=== PATIENT | female | born 2000 | race Caucasian/White ===

== ENCOUNTER 2025-05-28 08:20 | Emergency (ER) | payer OTHER, SELFPAY ==
--- NOTE | 2025-05-28 08:23 | ED_ITS ---
HPI - Dizziness General Chief Complaint: Dizziness Stated Complaint: lightheaded/dizzy/heavy Time Seen by Provider: 05/28/25 08:23 Source: patient Mode of arrival: ambulatory Limitations: no limitations History of Present Illness HPI Narrative: Bladimir is a 24-year-old female patient presenting to the clinic today with complaints of lightheadedness/dizziness since this morning when she woke up. She reports she is having a slight headache comes and goes, feeling unsteady on her feet, and dizziness is worse with position changes. Feels as though everything is heavy. Heart rate is low-40s and 50s-states that she does not think that is normal for her. Denies any chest pain or shortness of breath. No visual changes. No urinary symptoms. Last menstrual period was last month. Denies chance of . Medical history of GERD. No history of diabetes, heart problems, orthostatic hypotension, or vertigo. Related Data Allergies Allergy/AdvReac Type Severity Reaction Status Date / Time No Known Allergies Allergy Verified 05/28/25 09:24 Review of Systems Review of Systems: Pertinent positives per HPI. Patient denies any fever, chills, rash, visual changes, cough, runny nose, sore throat, shortness of breath, chest pain, palpitations, nausea, vomiting, diarrhea, constipation, abdominal pain, or any urinary issues. PMFSH Comments At the time of my signature, I reviewed and agree with the nursing past medical, surgical, social, and family history. There is no relevant family history pertinent to the patient complaint. Exam Narrative: General: Well-developed, well nourished, in no apparent distress Head: Normocephalic, atraumatic Eyes: Pupils equally round and reactive to light bilaterally, EOM intact, sclera and conjunctive clear, no discharge, lids normal, right-sided nystagmus on exam, dizziness worsens when turning her head to the right Ears: TMs intact and clear, ear canals clear, no drainage, grossly hearing normal. Nose: Nares patent, no discharge, no inflammation, no sinus tenderness. Mouth: Oropharynx without lesions or masses, good dentition, MMM. Tongue midline, even rise and fall of uvula Neck: Supple, trachea midline, no enlargement of anterior or posterior cervical nodes, no thyroid masses or goiter palpable. Cardio: Bradycardic- rate and rhythm, s1 and s2 normal, no murmur appreciated. Resp: Clear to auscultation bilaterally anteriorly and posteriorly, no rhonchi, rales, wheezing or rubs Musculoskeletal: No deformity, non-tender to palpation, grossly normal range of motion, muscle strength strong and equal, peripheral pulse strong, no edema, no cyanosis, normal gait and station Neuro: Alert and oriented x4 with normal speech, no focal deficits, cranial nerves I through XII intact, muscle strength 5 out of 5, sensation intact bilaterally Course Course Emergency Course: Portions of this record may have been created with voice recognition software. Level of Care: Express Care Visit Vital Signs Vital signs: Vital Signs Temperature 36.3 C L 05/28/25 08:42 Pulse Rate 47 L 05/28/25 08:42 Respiratory Rate 18 05/28/25 08:42 Blood Pressure 134/73 05/28/25 08:42 Pulse Oximetry 100 05/28/25 08:42 Oxygen Delivery Room Air 05/28/25 08:42 Temperature 36.3 C L 05/28/25 08:42 Pulse Rate 51 L 05/28/25 09:37 Respiratory Rate 16 05/28/25 09:37 Blood Pressure 121/63 05/28/25 09:37 Pulse Oximetry 100 05/28/25 09:37 Oxygen Delivery Room Air 05/28/25 09:37 Vital signs reviewed Transfer Transfered to: [facility] Transportation: Other (Private car) Transfer rationale: Dizziness, right nystagmus, bradycardia Accepting physician: Malu Transfer comments: private car- father to drive MDM - Dizziness MDM Narrative Medical decision making narrative: At the time of visit patient is resting comfortably on the exam table. Patient appears to be nontoxic. EKG: EKG shows sinus bradycardia with sinus arrhythmia with a heart rate of 50 beats per minute no ST elevation or depression noted. No comparison EKG available Labs: Urinalysis shows trace of leukocytes and 1+ blood. Bedside test was negative. We will send urine for culture. Blood sugar was 88 Orthostatic blood pressures: Lying blood pressure was 125/67 with a heart rate of 49 beats per minute, sitting blood pressure was 120/60 with a heart rate of 50, standing blood pressure was 121/63 with heart rate of 64 Procedures: Attempted May maneuver in the clinic today-for right-sided BPPV- patient did not feel as though this helps Plan: Patient is bradycardic-heart rate 40s and 50s, orthostatic blood pressures were within normal limits, blood sugar is 88, attempted May maneuver without success. Neuro exam negative other than right-sided nystagmus. Offer to send patient to the ER for further evaluation and she spoke with her parents and they all decided that she would like to go to the emergency room for further evaluation. Patient would like to go to [facility]. Contacted Taylor- physician's assistant education director at [facility] report was given for continuity of care. Patient to be driven to the ER via private car by her father. Differential Diagnosis Differential diagnosis: Likely adverse reaction to drug, benign paroxysmal positional vertigo, orthostatic hypotension, vertebral basilar insufficiency, cerebrovascular accident, acute vestibular neuronitis, transient cerebral ischemia and other (Hypoglycemia, cardiac dysrhythmia, UTI, dehydration, anxiety,) Lab Data Labs: Lab Results 05/28/25 05/28/25 Range/Units 09:03 09:08 POC Capillary Glucose 88 (65-105) mg/dl POC Urine Color Yellow POC Urine Clarity Clear POC Urine pH 7.0 POC Ur Specif [place] 1.015 POC Urine Protein Negative (Negative) POC Ur Glucose (UA) Negative (Negative) POC Urine Ketones Negative (Negative) POC Urine Blood 1+ (Negative) POC Urine Nitrite Negative (Negative) POC Urine Bilirubin Negative (Negative) POC Urine Urobilinogen 0.2 POC U Leukocyte Esteras Trace (Negative) POC Urine HCG, Qual Negative (Negative) Discharge Plan Discharge Clinical Impression: Dizziness, Bradycardia, Nystagmus of right eye Patient Disposition: Acute Care Hospital Condition: Stable Patient Language: Sami Follow-up/Referrals: UNKNOWN,DOCTOR [Primary Care Provider] - Time of Disposition: 09:35 Quality NIHSS Nursing Documentation ED NIHSS nursing documentation: reviewed/agree
--- OUTSIDE RECORDS SUMMARY | 2025-05-28 08:31 | XMS_ITS | Clinical Summary ---
Author Organization [facility] Address [address] [place] [address] Care Team Providers Care Flare Maker Name Role Phone Provider, Unknown Primary Care Provider Unavaila ble Allergies No known active allergies Medications Blisovi FE 11/24 1-20 MG-MCG Tablet 2 Active ondansetron (ZOFRAN-ODT) 4 MG TABLET DISPERSIBLEIndic ations:Nausea and vomiting, unspecified vomiting type Take 1 Tablet by mouth every 8 hours as needed for Nausea - 1st line. 10 Tablet 3 Active Additional Information Patient not taking.Reported on 12/15/2024 ondansetron (ZOFRAN) 4 MG Tablet Take 1 Tablet by mouth every 8 hours as needed for Nausea - 1st line. 10 Tablet 3 Active Additional Information Patient not taking.Reported on 12/15/2024 Active Problems No known active problems Social History Tobacco Use Types Packs/Day Years Used Date Smoking Tobacco: Never Smokeless Tobacco: Never Tobacco Cessation:Counseling Given: Not Answered Alcohol Use Standard Drinks/Week Comments Never 0 (1 standard drink = 0.6 oz pur e alcohol) Comments No Sex and Gender Information Value Date Recorded Sex Assigned at Not on file Legal Sex Female 10:30 AM DELI MANAGER Gender Identity Not on file Sexual Orientation Not on file Last Filed Vital Signs Vital Sign Reading Time Taken Comments Blood Pressure 140/90 12/15/2024 5:18 PM DELI MANAGER Pulse 98 12/15/2024 5:18 PM DELI MANAGER Temperature 37.4 C (99.4 F) 12/15/2024 5:18 PM DELI MANAGER Respiratory Rate 18 12/15/2024 5:18 PM DELI MANAGER Oxygen Saturation 97% 12/15/2024 5:18 PM DELI MANAGER Inhaled Oxygen Concentration - - Weight 99.8 kg (220 lb) 12/15/2024 5:18 PM DELI MANAGER Height 160 cm (5' 3) 12/15/2024 5:18 PM DELI MANAGER Body Mass Index 38.97 12/15/2024 5:18 PM DELI MANAGER Plan of Treatment Health Maintenance Due Date Last Done Comments Hepatitis C Virus (HCV) Screening 2002 Meningococcal B Immunization (1 of 2 - Standard) 2018 Pap Smear 2023 SARS-COV-2 Immunization ( season) 2024 11/28/2021, 06/25/2021, 06/01/2021 Influenza Immunization (#1) 2025 Respiratory Syncytial Virus (RSV) Immunization (Adult) (1 - 1-dose 75+ series) 2077 Hepatitis B Immunization Completed 003, 2002, 2002 DTaP/Tdap/Td Immunization Discontinued 2013, 06/11/2007, 09/10/2003, Additional history exists Meningococcal Immunization (ACWY) Aged Out 06/09/2014 No longer eligible based on patient's age to complete this topic TdaP Immunization Completed 06/09/2014 Human Papillomavirus (HPV) Immunization Completed 05/13/2020, 05/15/2017 Pneumococcal Immunization Combined Aged Out No longer eligible based on patient's age to complete this topic Rotavirus Immunization Aged Out No lo nger eligible based on patient's age to complete this topic Insurance [facility] Care Teams Flare Maker Relationship Specialty Start Date End Date Provider, Unknown UNKNOWN PCP - General 12/20/21
[2025-05-28 08:42] VITALS: BP 134/73; PULSE 47; RESP 18; TEMP 36.3; O2SAT 100
[2025-05-28 09:00] VITALS: BP 125/67; PULSE 49
[2025-05-28 09:03] VITALS: BP 120/60; PULSE 50
[2025-05-28 09:05] VITALS: BP 121/63; PULSE 64
[2025-05-28 09:05] LABS: BEDSIDEPREGUCG Negative (Negative); EDUAAPPEAR Clear; EDUABILI Negative (Negative); EDUABLOOD 1+ (Negative); EDUACOLOR1 Yellow; EDUAGLUCOSE Negative (Negative); EDUAKETONE Negative (Negative); EDUALEUKO Trace (Negative); EDUANITRATE Negative (Negative); EDUAPH 7.0; EDUAPROTEIN Negative (Negative); EDUASPGRAVITY 1.015; EDUAUROBILI 0.2
[2025-05-28 09:37] VITALS: BP 121/63; PULSE 51; RESP 16; O2SAT 100
== END 2025-05-28 09:37 | disposition short-term general hospital (02) ==
PROVIDERS: Emergency Provider Nurse Practitioner Family
DX: R42 Dizziness and giddiness (principal); R00.1 Bradycardia, unspecified; H55.00 Unspecified nystagmus; K21.9 Gastro-esophageal reflux disease without esophagitis
CPT/HCPCS: 81003; 81025; 82948; 87086; 99212; 99213; G0463

== ENCOUNTER 2025-05-28 09:52 | Emergency (ER) | payer OTHER, SELFPAY ==
--- NOTE | ~2025-05-28 | XR_ITS ---
EXAMINATION: XR chest 2V 05/28/2025 10:38 INDICATION: Decreased heart rate. PROCEDURE: 2 view chest COMPARISON: No prior studies for comparison. FINDINGS: The lungs are clear. The cardiomediastinal silhouette is within normal limits. There are no pleural effusions. There is no pneumothorax suspected. IMPRESSION: 1: NO ACUTE CARDIOPULMONARY DISEASE. Reviewed, dictated and finalized at location A.
--- NOTE | 2025-05-28 09:53 | ECG_ITS ---
Test Date: 2025-05-28 09:58:12 Measurements Intervals [place] Rate: 57 P: 19 GA: 142 QRS: 34 QRSD: 91 T: 16 QT: 414 QTc: 404 Interpretive Statements SINUS BRADYCARDIA WITH SINUS ARRHYTHMIA No previous ECG available for comparison Electronically Signed On 05-29-2025 15:46:23 CDT by Jose Vanegas M.D.
[2025-05-28 09:57] VITALS: BP 135/82; PULSE 55; RESP 16; TEMP 36.8; O2SAT 99
--- OUTSIDE RECORDS SUMMARY | 2025-05-28 09:57 | XMS_ITS | Clinical Summary ---
Author Organization [facility] Address [address] [place] [address] Care Team Providers Care Math Coach Name Role Phone Provider, Unknown Primary Care [...] on file Legal Sex Female 10:30 AM MANAGER STATISTICAL Gender Identity Not on file Sexual Orientation Not on file Last Filed Vital Signs Vital Sign Reading Time Taken Comments Blood Pressure 140/90 12/15/2024 5:18 PM MANAGER STATISTICAL Pulse 98 12/15/2024 5:18 PM MANAGER STATISTICAL Temperature 37.4 C (99.4 F) 12/15/2024 5:18 PM MANAGER STATISTICAL Respiratory Rate 18 12/15/2024 5:18 PM MANAGER STATISTICAL Oxygen Saturation 97% 12/15/2024 5:18 PM MANAGER STATISTICAL Inhaled Oxygen Concentration - - Weight 99.8 kg (220 lb) 12/15/2024 5:18 PM MANAGER STATISTICAL Height 160 cm (5' 3) 12/15/2024 5:18 PM MANAGER STATISTICAL Body Mass Index 38.97 12/15/2024 5:18 PM MANAGER STATISTICAL Plan of Treatment Health Maintenance Due Date [...] patient's age to complete this topic Insurance [facility] Care Teams Math Coach Relationship Specialty Start Date End Date Provider, Unknown UNKNOWN PCP - General 12/20/21
--- NOTE | 2025-05-28 10:02 | ED.DIZZY ---
HPI - Dizziness General Chief Complaint: Dizziness <Taylor Lema PA-C - Last Filed: 05/28/25 18:46> Stated Complaint: dizzines <Taylor Lema PA-C - Last Filed: 05/28/25 18:46> Time Seen by Provider: 05/28/25 10:02 <Taylor Lema PA-C - Last Filed: 05/28/25 18:46> Focused HPI: This is a 24 year old female that presents to the ER for dizziness/lightheadedness. Ongoing since this morning. Seen at urgent care and sent to the ER for further evaluation. GENERAL: Well-appearing, well-nourished, and in no acute distress. HEAD: Normocephalic, atraumatic. CHEST: Clear to auscultation. ?No respiratory distress. HEART: Regular rate and rhythm.? NEURO: ?Alert and oriented x3. Patient screened in triage and initial orders placed.? ?Additional care and disposition to be based upon?diagnostic testing and treatment. Patient developed some dizziness today upon waking up. Every time she stands up she says she gets somewhat lightheaded. Went to urgent care with a find her heart rate to be low so they sent her here. No chest pain. No vision changes. No other complaints. No syncope. <Taylor Lema PA-C - Last Filed: 05/28/25 18:46> Focused HPI: GENERAL: Well-appearing, well-nourished, and in no acute distress. HEAD: Normocephalic, atraumatic. CHEST: Clear to auscultation. ?No respiratory distress. HEART: Regular rate and rhythm.? NEURO: ?Alert and oriented x3. Patient screened in triage and initial orders placed.? ?Additional care and disposition to be based upon?diagnostic testing and treatment. Patient developed some dizziness today upon waking up. Every time she stands up she says she gets somewhat lightheaded. Went to urgent care with a find her heart rate to be low so they sent her here. No chest pain. No vision changes. No other complaints. No syncope. <Isidro Dawson MD - Last Filed: 05/28/25 13:35> Related Data Allergies/Adverse Reactions: Allergies Allergy/AdvReac Type Severity Reaction Status Date / Time No Known Allergies Allergy Verified 05/28/25 09:24 <Taylor Lema PA-C - Last Filed: 05/28/25 18:46> Review of Systems Review of Systems: All systems reviewed & are unremarkable except as noted in HPI and below (HPI) <Isidro Dawson MD - Last Filed: 05/28/25 13:35> Exam Narrative: Constitutional: Generally well appearing, no acute distress Head: Atraumatic, no deformities. Eyes: Pupils equal, round, and reactive to light. Neck: Supple, no tracheal deviation, no JVD. ENMT: Mucous membranes moist Cardiovascular: S1, S2 auscultated. No murmurs, rubs, or gallops. No S3/S4. Normal Distal pulses. No peripheral edema. Respiratory: Lung sounds equal. No wheezes, rales, or rhonchi. Gastrointestinal: Abdomen was soft and non-tender. Non-distended. No rebound or guarding. Genitourinary: Deferred Musculoskeletal: Normal muscle tone and bulk. No obvious deformities or tenderness over extremities. Skin: No rashes. Neurological: Strength 5/5 in extremities. Cranial nerves I-XII grossly intact. Distal sensation intact. Mental Status: Awake, alert and oriented x3. Follows commands <Isidro Dawson MD - Last Filed: 05/28/25 13:35> Course Vital Signs Vital signs: Vital Signs Temperature 36.8 C 05/28/25 09:57 Pulse Rate 55 L 05/28/25 09:57 Respiratory Rate 16 05/28/25 09:57 Blood Pressure 135/82 05/28/25 09:57 Pulse Oximetry 99 05/28/25 09:57 Oxygen Delivery Room Air 05/28/25 09:57 Temperature 36.8 C 05/28/25 09:57 Pulse Rate 55 L 05/28/25 09:57 Respiratory Rate 16 05/28/25 09:57 Blood Pressure 135/82 05/28/25 09:57 Pulse Oximetry 99 05/28/25 09:57 Oxygen Delivery Room Air 05/28/25 09:57 <Taylor Lema PA-C - Last Filed: 05/28/25 18:46> Vital Signs Temperature 36.8 C 05/28/25 09:57 Pulse Rate 55 L 05/28/25 09:57 Respiratory Rate 16 05/28/25 09:57 Blood Pressure 135/82 05/28/25 09:57 Pulse Oximetry 99 05/28/25 09:57 Oxygen Delivery Room Air 05/28/25 09:57 Temperature 36.8 C 05/28/25 09:57 Pulse Rate 55 L 05/28/25 09:57 Respiratory Rate 16 05/28/25 09:57 Blood Pressure 135/82 05/28/25 09:57 Pulse Oximetry 99 05/28/25 09:57 Oxygen Delivery Room Air 05/28/25 09:57 <Isidro Dawson MD - Last Filed: 05/28/25 13:35> MDM - Dizziness MDM Narrative Medical decision making narrative: 24-year-old female presenting for some dizziness with position changes today as well as bradycardia as noted from urgent care. On exam she is somewhat bradycardic rate of 55 but vitals are otherwise regular. She is very well-appearing. Normal cardio respiratory exam however I can palpate she does have sinus arrhythmia with respiratory variation. Attending cardiac workup on the patient, giving fluid bolus. EKG obtained at 1:23 p.m. showing sinus bradycardia with sinus arrhythmia. Rate of 53. Normal intervals. No ST elevation or depression. Workup reviewed showing no acute pathology. Patient is well-appearing at this point, stable for discharge home. Discussed follow-up closely with cardiology or return for any new or worsening symptoms. Pt feeling improved and would like to go home at this point. Return precautions were given to the patient include any new or worsening symptoms or development of and not limited to any chest pain, shortness of breath, lightheadedness, abdominal pain, fevers, chills. Patient understands and agrees. They are to follow-up with her PCP. All questions were answered. I reviewed the patient's vital signs, history, allergies, and labs and imaging workup. <Isidro Dawson MD - Last Filed: 05/28/25 13:35> Lab Data Result diagrams: 05/28/25 10:11 05/28/25 10:11 <Taylor Lema PA-C - Last Filed: 05/28/25 18:46> Labs: Lab Results 05/28/25 Range/Units 10:11 WBC 5.7 (4.5-10.0) K/mm3 RBC 4.67 (4.2-5.4) M/mm3 Hgb 12.6 (12.0-15.0) g/dL Hct 39.2 (37.0-47.0) % MCV 83.9 (80-100) fl MCH 27.0 (26-34) pg MCHC 32.1 (32-36) g/dl RDW 13.7 (11.5-14.5) % Plt Count 316 (150-375) k/mm3 MPV 9.0 (7.4-10.4) fl Immature Gran % (Auto) 0.4 (0-0.5) % Neut % (Auto) 59.7 (45.5-73.1) % Lymph % (Auto) 32.5 (18.3-44.2) % [place] % (Auto) 5.3 (2.6-8.5) % Eos % (Auto) 1.4 (0-4.4) % Baso % (Auto) 0.7 (0.2-1.2) % Lymph # (Auto) 1.84 (0.9-3.2) K/mm3 [place] # (Auto) 0.3 (0.1-0.6) K/mm3 Eos # (Auto) 0.1 (0-0.3) K/mm3 Baso # (Auto) 0.0 (0.0-0.1) K/mm3 Abs Immat Gran (auto) 0.02 (0.00-0.031) K/mm3 Absolute Neuts (auto) 3.4 (1.3-6.7) K/mm3 Absolute Nucleated RBC 0.000 (0.0-0.012) K/mm3 Nucleated RBC % 0.0 (0.0-0.2) % Sodium 135 L (137-145) mmol/L Potassium 4.2 (3.4-5.0) mmol/L Chloride 105 (98-107) mmol/L Carbon Dioxide 21 L (22-30) mmol/L Anion Gap 9 (4-12) mmol/L BUN 11 (7-17) mg/dL Creatinine 0.76 (0.7-1.0) mg/dL Estim Creat Clear Calc 117 ml/min Estimated GFR > 60 (59 - ) Glucose 93 (65-110) mg/dL Calcium 9.4 (8.4-10.2) mg/dL Magnesium 2.2 (1.6-2.3) mg/dL Total Bilirubin 0.8 (0.2-1.3) mg/dL AST 25 (14-36) U/L ALT 14 (6-35) U/L Alkaline Phosphatase 90 (38-126) U/L Total Protein 8.1 (6.3-8.2) g/dL Albumin 4.2 (3.5-5.1) g/dL <Taylor Lema PA-C - Last Filed: 05/28/25 18:46> Lab Results 05/28/25 Range/Units 10:11 WBC 5.7 (4.5-10.0) K/mm3 RBC 4.67 (4.2-5.4) M/mm3 Hgb 12.6 (12.0-15.0) g/dL Hct 39.2 (37.0-47.0) % MCV 83.9 (80-100) fl MCH 27.0 (26-34) pg MCHC 32.1 (32-36) g/dl RDW 13.7 (11.5-14.5) % Plt Count 316 (150-375) k/mm3 MPV 9.0 (7.4-10.4) fl Immature Gran % (Auto) 0.4 (0-0.5) % Neut % (Auto) 59.7 (45.5-73.1) % Lymph % (Auto) 32.5 (18.3-44.2) % [place] % (Auto) 5.3 (2.6-8.5) % Eos % (Auto) 1.4 (0-4.4) % Baso % (Auto) 0.7 (0.2-1.2) % Lymph # (Auto) 1.84 (0.9-3.2) K/mm3 [place] # (Auto) 0.3 (0.1-0.6) K/mm3 Eos # (Auto) 0.1 (0-0.3) K/mm3 Baso # (Auto) 0.0 (0.0-0.1) K/mm3 Abs Immat Gran (auto) 0.02 (0.00-0.031) K/mm3 Absolute Neuts (auto) 3.4 (1.3-6.7) K/mm3 Absolute Nucleated RBC 0.000 (0.0-0.012) K/mm3 Nucleated RBC % 0.0 (0.0-0.2) % Sodium 135 L (137-145) mmol/L Potassium 4.2 (3.4-5.0) mmol/L Chloride 105 (98-107) mmol/L Carbon Dioxide 21 L (22-30) mmol/L Anion Gap 9 (4-12) mmol/L BUN 11 (7-17) mg/dL Creatinine 0.76 (0.7-1.0) mg/dL Estim Creat Clear Calc 117 ml/min Estimated GFR > 60 (59 - ) Glucose 93 (65-110) mg/dL Calcium 9.4 (8.4-10.2) mg/dL Magnesium 2.2 (1.6-2.3) mg/dL Total Bilirubin 0.8 (0.2-1.3) mg/dL AST 25 (14-36) U/L ALT 14 (6-35) U/L Alkaline Phosphatase 90 (38-126) U/L Total Protein 8.1 (6.3-8.2) g/dL Albumin 4.2 (3.5-5.1) g/dL <Isidro Dawson MD - Last Filed: 05/28/25 13:35> Discharge Plan Discharge Clinical Impression: Bradycardia, Orthostatic dizziness <Taylor Lema PA-C - Last Filed: 05/28/25 18:46> Patient Disposition: Home <Taylor Lema PA-C - Last Filed: 05/28/25 18:46> Condition: Stable <SUNDAY Kaur Last Filed: 05/28/25 18:46> Instructions: Antibiotic Form, Lightheadedness (ED), Dizziness (ED) <SUNDAY Kaur Last Filed: 05/28/25 18:46> Patient Language: Irish <Taylor Lema PA-C - Last Filed: 05/28/25 18:46> Prescriptions: New meclizine 25 mg tablet 25 mg PO TID PRN (Reason: dizziness) Qty: 20 0RF <Taylor Lema PA-C - Last Filed: 05/28/25 18:46> Follow-up/Referrals: Jose Vanegas MD [Physician] - UNKNOWN,DOCTOR [Primary Care Provider] - Ca Arroyo DO [Physician] - <Taylor Lema PA-C - Last Filed: 05/28/25 18:46> Stand Alone Forms: Work/School Release IP <Taylor Lema PA-C - Last Filed: 05/28/25 18:46> Time of Disposition: 13:34 <Taylor Lema PA-C - Last Filed: 05/28/25 18:46> 13:34 <Isidro Dawson MD - Last Filed: 05/28/25 13:35>
[2025-05-28 10:23] LABS: Hematocrit 39.2 % (37.0-47.0); Hemoglobin 12.6 g/dL (12.0-15.0); Immature Granulocyte Percent A 0.4 % (0-0.5); Lymphocytes Absolute Auto 1.84 K/mm3 (0.9-3.2); Mean Corpuscular HGB Conc 32.1 g/dl (32-36); Mean Corpuscular Hemoglobin 27.0 pg (26-34); Mean Corpuscular Volume 83.9 fl (80-100); Nucleated Red Blood Cells Absolute Auto 0.000 K/mm3 (0.0-0.012); Nucleated Red Blood Cells Perc 0.0 % (0.0-0.2); Platelet Count Result 316 k/mm3 (150-375); Red Blood Count 4.67 M/mm3 (4.2-5.4); White Blood Count 5.7 K/mm3 (4.5-10.0)
[2025-05-28 10:44] LABS: Alanine Aminotransferase 14 U/L (6-35); Albumin Level 4.2 g/dL (3.5-5.1); Alkaline Phosphatase 90 U/L (38-126); Anion Gap 9 mmol/L (4-12); Aspartate Amino Transferase 25 U/L (14-36); Bilirubin,Total 0.8 mg/dL (0.2-1.3); Blood Urea Nitrogen 11 mg/dL (7-17); Calcium 9.4 mg/dL (8.4-10.2); Carbon Dioxide 21 mmol/L (22-30); Chloride 105 mmol/L (98-107); Estimated CRCL calculation 117 ml/min; Estimated Glomerular Filt Rate > 60; Glucose 93 mg/dL (65-110); Magnesium 2.2 mg/dL (1.6-2.3); Potassium 4.2 mmol/L (3.4-5.0); Sodium 135 mmol/L (137-145); Total Protein 8.1 g/dL (6.3-8.2)
--- NOTE | 2025-05-28 11:22 | PC.NURSE ---
patient given urine cup and advised to use it if she has to urinate.
--- NOTE | 2025-05-28 12:59 | ECG_ITS ---
Test Date: 2025-05-28 13:23:51 Measurements Intervals [place] Rate: 53 P: 21 NM: 138 QRS: 42 QRSD: 94 T: 22 QT: 443 QTc: 418 Interpretive Statements SINUS BRADYCARDIA WITH SINUS ARRHYTHMIA Compared to ECG 05/28/2025 09:58:12 No significant changes Electronically Signed On 05-29-2025 15:58:31 CDT by Jose Vanegas M.D.
[2025-05-28] MEDS: ONDANSETRON INJ 4 MG/2 ML VIAL IV PUSH (13:18)
[2025-05-28] MEDS: SODIUM CHLORIDE 0.9% IV 1,000 ML 999 ML IV CONT (13:18)
[2025-05-28] MEDS: MECLIZINE HCL 25 MG TABLET PO (13:18)
[2025-05-28 13:40] LABS: Add Urine Microscopic? YES; Appearance Urine Clear (Clear); Glucose Urine UA Negative (Negative); Leukocyte Esterase Ur Trace LEU/UL (Negative); Nitrate Urine Negative (Negative); Non Pathogenic Casts 0-2; Specific Grav Ur 1.023 (1.001-1.035)
[2025-05-28 13:45] VITALS: BP 112/68; PULSE 52; RESP 20; O2SAT 99
--- OUTSIDE RECORDS SUMMARY | 2025-05-28 13:46 | XMS_ITS | Clinical Summary ---
Author Organization [facility] Address [address] [place] [address] Care Team Providers Care Sales Market Leader Name Role Phone Provider, Unknown Primary Care [...] on file Legal Sex Female 10:30 AM SLATE CUTTER Gender Identity Not on file Sexual Orientation Not on file Last Filed Vital Signs Vital Sign Reading Time Taken Comments Blood Pressure 140/90 12/15/2024 5:18 PM SLATE CUTTER Pulse 98 12/15/2024 5:18 PM SLATE CUTTER Temperature 37.4 C (99.4 F) 12/15/2024 5:18 PM SLATE CUTTER Respiratory Rate 18 12/15/2024 5:18 PM SLATE CUTTER Oxygen Saturation 97% 12/15/2024 5:18 PM SLATE CUTTER Inhaled Oxygen Concentration - - Weight 99.8 kg (220 lb) 12/15/2024 5:18 PM SLATE CUTTER Height 160 cm (5' 3) 12/15/2024 5:18 PM SLATE CUTTER Body Mass Index 38.97 12/15/2024 5:18 PM SLATE CUTTER Plan of Treatment Health Maintenance Due Date [...] [facility] Care Teams Sales Market Leader Relationship Specialty Start Date End Date Provider, Unknown UNKNOWN PCP - General 12/20/21
== END 2025-05-28 14:25 | disposition home or self-care (01) ==
LOC: ANHED 13:37
PROVIDERS: Physician Assistant; Emergency Provider Emergency Medicine
DX: R42 Dizziness and giddiness (principal); R00.1 Bradycardia, unspecified; H55.00 Unspecified nystagmus
CPT/HCPCS: 36415; 71046; 80053; 81001; 81003; 81025; 82948; 83735; 85025; 87086; 93005; 96361; 96374; 99284; A9270; J2405; J7030

== ENCOUNTER 2025-07-07 09:05 | Emergency (ER) | payer OTHER, SELFPAY ==
--- OUTSIDE RECORDS SUMMARY | 2025-07-07 09:15 | XMS_ITS | Clinical Summary ---
Author Organization [facility] Address [address] [place] [address] Care Team Providers Care Assistant Tennis Coach Name Role Phone Provider, Unknown Primary [...] on file Legal Sex Female 10:30 AM ICT SALES REPRESENTATIVE Gender Identity Not on file Sexual Orientation Not on file Last Filed Vital Signs Vital Sign Reading Time Taken Comments Blood Pressure 140/90 12/15/2024 5:18 PM ICT SALES REPRESENTATIVE Pulse 98 12/15/2024 5:18 PM ICT SALES REPRESENTATIVE Temperature 37.4 C (99.4 F) 12/15/2024 5:18 PM ICT SALES REPRESENTATIVE Respiratory Rate 18 12/15/2024 5:18 PM ICT SALES REPRESENTATIVE Oxygen Saturation 97% 12/15/2024 5:18 PM ICT SALES REPRESENTATIVE Inhaled Oxygen Concentration - - Weight 99.8 kg (220 lb) 12/15/2024 5:18 PM ICT SALES REPRESENTATIVE Height 160 cm (5' 3) 12/15/2024 5:18 PM ICT SALES REPRESENTATIVE Body Mass Index 38.97 12/15/2024 5:18 PM ICT SALES REPRESENTATIVE Plan of Treatment Health Maintenance Due Date [...] patient's age to complete this topic Insurance [facility] Care Teams Assistant Tennis Coach Relationship Specialty Start Date End Date Provider, Unknown UNKNOWN PCP - General 12/20/21
[2025-07-07 09:35] VITALS: BP 123/74; PULSE 57; RESP 18; TEMP 36.1; O2SAT 100
--- NOTE | 2025-07-07 10:09 | ED_ITS ---
HPI - URI/Sore Throat General Chief Complaint: Upper Respiratory Infection Stated Complaint: cough Time Seen by Provider: 07/07/25 10:00 Source: patient and RN notes reviewed Mode of arrival: ambulatory Limitations: no limitations History of Present Illness HPI Narrative: 25-year-old female presents [facility] complaining of upper respiratory symptoms for 3 days. Patient reports cough, congestion, runny nose and chest congestion. Patient says the cough is productive in is worse at night when she is lying down. Patient denies any chest pain, difficulty breathing, sore throat, earache, nausea, vomiting, diarrhea, any other symptoms. Patient has been taking antihistamines to help with the congestion. Related Data Home Medications ?Medication ?Instructions ?Recorded ?Confirmed ?Last Taken ?Type norethindrone 1 mg-ethinyl tablet 07/07/25 Unknown Hi story estradiol 20 mcg (21)-iron 75 mg (7) tablet (Aurovela Fe 1-20 (28)) Allergies Allergy/AdvReac Type Severity Reaction Status Date / Time No Known Allergies Allergy Verified 07/07/25 09:26 Review of Systems Review of Systems: CONSTITUTIONAL: Denies fever, chills, body aches, or sweats. EYES: Denies visual changes, redness, or discharge. ENT: Positive for rhinorrhea, congestion. Negative for sore throat and otalgia. CARDIOVASCULAR: Denies chest pain, palpitations, or edema. RESPIRATORY: Positive for cough. Negative for dyspnea or wheezing. GASTROINTESTINAL: Denies abdominal pain, nausea, vomiting, or diarrhea. GENITOURINARY: Denies dysuria or hematuria. SKIN: Denies rash or itching. MUSCULOSKELETAL: Denies back pain, joint pain, or myalgia. NEUROLOGIC: Denies headache, numbness, or weakness. PSYCHIATRIC: Denies anxiety or depression. All other systems reviewed are negative, except as documented in HPI. PMFSH Comments At the time of my signature, I reviewed and agree with the nursing past medical, surgical, social, and family history. There is no relevant family history pertinent to the patient complaint. Exam Narrative: GENERAL: This is a well-nourished, well-developed adult, in no apparent distress. They are non ill-appearing, nontoxic appearing. HEAD: normocephalic, atraumatic. EYES: Sclera clear/white. Vision is grossly intact. Conjunctiva normal bilaterally. Extraocular movements intact. EARS: External ears normal, auditory canals clear and without drainage, TMs without erythema or perforation. Hearing grossly intact. NOSE: External nose normal with no obvious nasal discharge, nasal turbinates erythematous, no rhinorrhea. THROAT: Mucous membranes moist, posterior pharynx clear without redness or swelling. Uvula is midline. Postnasal drip present. NECK: Neck supple, non-tender without lymphadenopathy, masses or thyromegaly. CARDIOVASCULAR: Regular rate and rhythm without murmurs, gallops, or rubs. RESPIRATORY: Clear to auscultation. Breath sounds equal bilaterally. No wheezes, rales, or rhonchi. SKIN: warm, Dry, intact with no suspicious lesions or rash, good texture and turgor. NEURO: awake, alert, and oriented to person, place and time. There were no obvious focal neurologic abnormalities. EXTREMITIES: No joint tenderness, effusion, or edema noted. BACK: Nontender without deformity. Course Course Emergency Course: Portions of this record may have been created with voice recognition software Level of Care: Express Care Visit Vital Signs Vital signs: Vital Signs Temperature 97.0 F L 07/07/25 09:35 Pulse Rate 57 L 07/07/25 09:35 Respiratory Rate 18 07/07/25 09:35 Blood Pressure 123/74 07/07/25 09:35 Pulse Oximetry 100 07/07/25 09:35 Oxygen Delivery Room Air 07/07/25 09:35 Temperature 97.0 F L 07/07/25 09:35 Pulse Rate 57 L 07/07/25 09:35 Respiratory Rate 18 07/07/25 09:35 Blood Pressure 123/74 07/07/25 09:35 Pulse Oximetry 100 07/07/25 09:35 Oxygen Delivery Room Air 07/07/25 09:35 MDM - URI/Sore Throat MDM Narrative Medical decision making narrative: Patient's symptoms likely viral in etiology. For patient viral testing and she declined. Will prescribe benzonatate tablets as needed for cough. Discussed physical exam findings. Advised supportive measures and signs/symptoms to go to the ER. Pt is appropriate for outpt treatment and f/u. Differential Diagnosis Differential diagnosis: Likely upper respiratory infection, sinusitis, viral infection and pharyngitis Discharge Plan Discharge Clinical Impression: Upper respiratory infection Qualifiers: URI type: unspecified viral URI Qualified Code(s): J06.9 - Acute upper respiratory infection, unspecified Patient Disposition: Home Condition: Stable Instructions: Upper Respiratory Infection (ED) Additional Instructions: Viral illness may last between 7-10 days; antibiotics do not cure viral illness and are NOT recommended at this time. Recommend antihistamine Zyrtec or Claritin as needed for congestion. Take the benzonatate tablets as needed for cough. Also, recommend symptomatic treatment includes: rest, fluids, and increase humidity of the air at home. You may take ibuprofen 600 mg to 800 mg every 6-8 hours. Do not exceed more than 800 mg of ibuprofen per dose. Do not exceed more than 3200 mg ibuprofen in a day. You may take up to 1000 mg Tylenol every 6-8 hours. Do not exceed 1000 mg per dose, do exceed more than 4000 mg of Tylenol in a day. Please schedule a follow-up visit with your personal physician for further evaluation and treatment within 3-5days. Please go to the ER if he develops worsening symptoms, chest pain, difficulty breathing, difficulty swallowing, or any serious concerns. Patient Language: [place] Prescriptions: New benzonatate 100 mg capsule 100 mg PO TID PRN (Reason: cough) Qty: 20 0RF No Action norethindrone-e.estradiol-iron [Aurovela Fe 1-20 (28)] 1 mg-20 mcg (21)/75 mg (7) tablet Follow-up/Referrals: Kahlil,Radha [Other] Stand Alone Forms: Work/School Release IP Time of Disposition: 10:08
== END 2025-07-07 10:09 | disposition home or self-care (01) ==
DX: J06.9 Acute upper respiratory infection, unspecified (principal); K21.9 Gastro-esophageal reflux disease without esophagitis
CPT/HCPCS: 99213; G0463